=== PATIENT | female | born 1985 | race Caucasian/White ===

== ENCOUNTER → 2017-05-24 | Outpatient (CLI) | payer OTHER | LOC: M WHC 08:43 | DX: N83.201 Unspecified ovarian cyst, right side (principal); D25.9 Leiomyoma of uterus, unspecified | CPT/HCPCS: 76830 ==

== ENCOUNTER → 2017-05-24 | Outpatient (REF) | payer OTHER | LOC: M SFHCWAGY 08:46 | DX: Z12.4 Encounter for screening for malignant neoplasm of cervix (principal) ==